=== PATIENT | female | born 1995 | race Caucasian/White ===

== ENCOUNTER 2023-12-12 17:41 | Observation (INO) | payer BC ==
[~2023-12-12 17:41] MED LIST: Magnevist 469MG/ML 20 ML VIAL ONE
[2023-12-12 19:36] LABS: #Basophils 0.04 10x3/uL (0.0-0.2); #Monocytes 0.52 10x3/uL (0.0-1.1); #Neutrophils 7.55 10x3/uL (1.5-8.4); %Basophils 0.4 % (0.0-2.0); %Eosinophils 1.9 % (0.0-6.0); %Lymphocytes 20.1 % (18.0-47.0); %Neutrophils 72.4 % (40.0-75.0); ALT (SGPT) 20 U/L (8-55); AST (SGOT) 18 U/L (5-34); Albumin 4.3 g/dL (3.5-5.0); Alkaline Phosphatase 59 U/L (40-110); Anion Gap 15 mmol/L (10-20); BUN (Urea Nitrogen) 9 mg/dL (7.0-18.7); Bilirubin, Total 0.4 mg/dL (0.2-1.2); Calc. Creatinine Clearance 0 mL/min (70-130); Calcium 9.6 mg/dL (7.8-10.44); Carbon Dioxide 24 mmol/L (22-29); Chloride 103 mmol/L (98-107); Estimated GFR 119; Globulin 3.3 g/dL (2.4-3.5); Glucose 96 mg/dL (70-105); Hematocrit 38.3 % (34.9-44.5); Hemoglobin 13.1 g/dL (12.0-15.5); Mean Corpuscular HGB CONC 34.2 g/dL (32.0-36.0); Mean Corpuscular Hemoglobin 29.5 pg (27.0-33.0); Mean Corpuscular Volume 86.3 fL (81.6-98.3); Mean Platelet Volume 9.2 fL (7.4-10.4); Platelet Count 322 10x3/uL (150-450); Potassium 3.7 mmol/L (3.5-5.1); Protein, Total 7.6 g/dL (6.0-8.3); RBC Distribution Width 12.5 % (11.5-14.5); Red Blood Cell (RBC) Count 4.44 10x6/uL (3.90-5.03); Sodium 138 mmol/L (136-145); White Blood Cell (WBC) Count 10.4 10x3/uL (3.5-10.5)
[2023-12-12] MEDS ORDERED: Calcium Carbonate 500 MG ChewTAB PO PRN (20:08)
[2023-12-12] MEDS ORDERED: Ondansetron PF 4 MG/2 ML Vial IVP PRN (20:08)
[2023-12-12 21:10] VITALS: BMI 29.8
[2023-12-12] MEDS: Ketorolac Tromethamine 30 MG (1 mL) VIAL IVP SCH (21:40)
[2023-12-12] MEDS: Dexamethasone 4 mg/ml Vial SLOW IVP SCH (21:43)
[2023-12-12] MEDS: diphenhydrAMINE 50 MG/ML VIAL IVP SCH (21:46)
[2023-12-12] MEDS: Lactated Ringer's 500 ML IV SCH (21:53)
[2023-12-12] MEDS: Prochlorperazine Edisylate 10 MG in Sodium Chloride 0.9% 50 ML IVPB SCH (22:09)
[2023-12-13 04:09] LABS: Cardiac Risk 4.8 (Less than 4.5); Cholesterol 220 mg/dl (< 200 Desired); HDL Cholesterol 46 mg/dL (>60 Neg Risk); LDL Cholesterol, Calculated 159 mg/dL; Magnesium 1.9 mg/dL (1.6-2.6); Triglycerides 75 mg/dL (Less than 150)
[2023-12-13 04:26] LABS: Thyroid Stimulating Hormone 0.5661 uIU/mL (0.35-4.94)
[2023-12-13 17:30] LABS: Thyroid Stimulating Hormone 0.4749 uIU/mL (0.35-4.94)
[2023-12-13 20:00] LABS: Hemoglobin A1c 5.8 % (4.0-6.0)
[2023-12-13 20:17] LABS: Homocysteine 4.32 umol/L (5.08-15.39)
[2023-12-13] MEDS: Enoxaparin 40 MG (0.4 mL) SYRINGE SC SCH (20:26)
[2023-12-13] MEDS: Acetaminophen 325 MG TAB PO PRN (20:27)
[2023-12-13 20:58] LABS: INR-International Normal Ratio 0.9; Prothrombin Time 11.8 sec (12.0-14.7)
[2023-12-13 20:59] LABS: PTT 31.5 sec (22.9-36.1)
[2023-12-13 21:00] LABS: D-Dimer Test 1.4 mcg/mL (0.27-0.43)
[2023-12-14] MEDS: Ketorolac Tromethamine 30 MG (1 mL) VIAL IVP SCH ×2 (00:38→10:21)
[2023-12-14] MEDS: Prochlorperazine Maleate 5 MG TAB PO SCH (10:21)
[2023-12-14] MEDS: Verapamil 120 MG TAB PO SCH (10:21)
[2023-12-14 14:09] VITALS: BP 133/81; TEMP 98.1
[2023-12-15 14:13] LABS: HEX PHOS LA Tube 1 49.2 SEC; HEX PHOS LA Tube 2 46.8 SEC; Hexagonal Phospholipid Neut 2.4 SEC (0-8.0)
[2023-12-16 13:01] LABS: Cardiolipin IgA Ab 1.5 APL-U/mL (<14 Negative); Cardiolipin IgG Ab 1.3 GPL-U/mL (<10 Negative); Cardiolipin IgM Ab 1.7 MPL-U/mL (<10 Negative); EliA APS New Method **** NEW METHOD ****
== END 2023-12-14 14:10 | disposition home or self-care (01) ==
LOC: CSHERS 17:41 → CSHTELE 19:42
PROVIDERS: ADMIT Student in an Organized Health Care Education/Training Program; ATTEND Physician Assistant
DX: G43.909 Migraine, unspecified, not intractable, without status migrainosus (principal); R29.90 Unspecified symptoms and signs involving the nervous system; R53.1 Weakness; H53.8 Other visual disturbances; F17.200 Nicotine dependence, unspecified, uncomplicated; Z98.890 Other specified postprocedural states
CPT/HCPCS: 36415; 70553; 80053; 80061; 82607; 83036; 83090; 83735; 84443; 85025; 85300; 85303; 85305; 85307; 85598; 85610; 85730; 86140; 86147; 93005; 93880; 96372; 96374; 96375; 96376; A9579; G0378; J0780; J1100; J1200; J1650; J1885; J7120; Q0164